=== PATIENT | male | born 1940 | race Caucasian/White ===

== ENCOUNTER 2020-12-27 11:14 | Day surgery (SDC) | payer OTHER, SELFPAY ==
[~2020-12-27] VITALS: Ht 175.3 cm; Wt 69.4 kg
[~2020-12-27 11:14] MED LIST: CEFAZOLIN 2 GM IVPB PREMIX 50 ML IV ONE
[2020-12-27] MEDS ORDERED: SIMV20TA2 PO (12:22)
[2020-12-27] MEDS ORDERED: METO25TA3 PO (12:22)
[2020-12-27] MEDS ORDERED: CALC-823 PO (12:22)
[2020-12-27] MEDS ORDERED: PRAS10TA6 PO (12:22)
[2020-12-27] MEDS ORDERED: LISI-209 PO (12:22)
[2020-12-27] MEDS ORDERED: MULT-1089 PO (12:22)
[2020-12-27] MEDS ORDERED: ASPI-1393 PO (12:22)
[2020-12-27] MEDS ORDERED: KETOROLAC TROMETHAMINE 30 MG VIAL IVP ONE (12:43)
[2020-12-27] MEDS ORDERED: BUPIVACAINE /EPINEPHRINE/PF 0.5% 30 ML VIAL INJ ONE (12:43)
[2020-12-27] MEDS ORDERED: fentaNYL CITRATE/PF 100 MCG/2 ML AMP IVP ONE (12:43)
[2020-12-27] MEDS ORDERED: DEXAMETHASONE SOD PHOSPHATE 4 MG/ML VIAL IVP ONE (12:43)
[2020-12-27] MEDS ORDERED: SEVOFLURANE 15 MIN GAS INH ONE (12:43)
[2020-12-27] MEDS ORDERED: ONDANSETRON HCL 4 MG/2 ML VIAL IVP ONE (12:43)
[2020-12-27] MEDS ORDERED: PROPOFOL 200MG/ 20ML VIAL (DIPRIVAN) IV ONE (12:43)
[2020-12-27] MEDS ORDERED: NS IRRIG SOLN 1000 ML IR ONE (12:43)
[2020-12-27] MEDS ORDERED: METOCLOPRAMIDE HCL 10 MG/2 ML VIAL IVP ONE (12:43)
[2020-12-27] MEDS ORDERED: WATER FOR IRRIGATION,STERILE 1,000 ML IRRIG.SOLN IR ONE (12:43)
[2020-12-27] MEDS ORDERED: LIDOCAINE 1% 10 MG/ML, 20 ML MDV INJ ONE (12:43)
[2020-12-27] MEDS ORDERED: MIDAZOLAM HCL 5 MG/5 ML VIAL IVP ONE (12:43)
[2020-12-27] MEDS ORDERED: LR 1,000 ML IV.SOLN IV ONE (12:43)
[2020-12-27] MEDS ORDERED: HYDROmorphone 1 MG/ML INJ. CARTRIDGE IVP PRN ×2 (13:45)
[2020-12-27] MEDS ORDERED: hydrALAZINE HCL 20 MG/ML VIAL IVP PRN (13:45)
[2020-12-27] MEDS ORDERED: METOCLOPRAMIDE HCL 10 MG/2 ML VIAL IVP PRN (13:45)
[2020-12-27] MEDS ORDERED: LR 1,000 ML IV SCH (13:45)
[2020-12-27] MEDS ORDERED: MEPERIDINE HCL/PF 25 MG/ML DISP.SYRIN IVP PRN (13:45)
[2020-12-27] MEDS ORDERED: BUPIVACAINE LIPOSOME/PF 266 MG/20 ML VIAL INFIL ONE (13:46)
[2020-12-27 16:03] VITALS: BP_SYST 123
== END 2020-12-27 17:20 | disposition home or self-care (01) ==
LOC: SDS 11:14 → SMU 11:15 → SDS 17:20
PROVIDERS: ATTEND Surgery
DX: K40.90 Unilateral inguinal hernia, without obstruction or gangrene, not specified as recurrent (principal); I10 Essential (primary) hypertension; I25.10 Atherosclerotic heart disease of native coronary artery without angina pectoris; E78.2 Mixed hyperlipidemia; Z20.822 Contact with and (suspected) exposure to COVID-19; Z98.61 Coronary angioplasty status; Z79.899 Other long term (current) drug therapy
CPT/HCPCS: 49505; 88302; C1781; C9290; J0690; U0003; J1100; J1885; J2001; J2250; J2405; J2704; J2765; J3010; J3490; J7120

== ENCOUNTER 2020-12-31 10:08 | Observation (INO) | payer OTHER, SELFPAY ==
[~2020-12-31] VITALS: Ht 175.3 cm; Wt 69.4 kg
[~2020-12-31 10:08] MED LIST changes: +ASPI-1393 PO; +CALC-823 PO; -CEFAZOLIN 2 GM IVPB PREMIX 50 ML IV ONE; +LISI-209 PO; +METO25TA3 PO; +MULT-1089 PO; +PRAS10TA6 PO; +SIMV20TA2 PO
[2020-12-31 10:10] VITALS: BP_SYST 120
[2020-12-31] MEDS ORDERED: MORPHINE 2 MG/ML INJ. SYRINGE IVP ONE (10:30)
[2020-12-31] MEDS ORDERED: ASPIRIN 325 MG TABLET PO ONE (10:30)
[2020-12-31 10:59] LABS: ANION GAP 12 (5-15); CALCIUM 8.7 mg/dL (8.4-11.0); CHLORIDE 105 mmol/L (98-107); CREATININE 1.07 mg/dL (0.55-1.30); GLUCOSE 98 mg/dL (70-99); POTASSIUM 3.9 mmol/L (3.5-5.1); SODIUM SERUM 139 mmol/L (136-145); UREA NITROGEN, BLOOD 28 mg/dL (8-21)
[2020-12-31 11:01] LABS: BASOPHILS % (AUTO) 0.1 % (0.0-2.0); EOSINOPHILS % (AUTO) 0.3 % (0.0-4.0); HEMATOCRIT 37.9 % (36-54); HEMOGLOBIN 12.8 g/dL (14.0-18.0); LYMPHOCYTES # (AUTO) 1.2 K/uL (1.0-5.5); LYMPHOCYTES % (AUTO) 10.9 % (20.5-51.5); MEAN CORPUSCULAR HEMOGLOBIN 30 pg (27-31); MEAN CORPUSCULAR HGB CONC 34 % (32-36); MEAN CORPUSCULAR VOLUME 88 fL (79.0-98.0); MONOCYTES # (AUTO) 0.9 K/uL (0.0-1.0); NEUTROPHILS # (AUTO) 8.8 K/uL (1.8-7.7); NEUTROPHILS % (AUTO) 80.7 % (40.0-70.0); PLATELET COUNT (AUTO) 159 K/uL (130-430); RED BLOOD CELL COUNT(AUTO) 4.32 MIL/uL (4.2-6.2); RED CELL DISTRIBUTION WIDTH 13.4 % (9.0-15.0); WHITE BLOOD COUNT (AUTO) 10.9 K/uL (4.8-10.8)
[2020-12-31 11:09] LABS: ALANINE AMINOTRANSFERASE 19 U/L (12-78); ALBUMIN 3.1 g/dL (3.4-4.8); ASPARTATE AMINOTRANSFERASE 32 U/L (10-37); TOTAL BILIRUBIN 1.1 mg/dL (0.0-1.0)
[2020-12-31 14:26] VITALS: BP_SYST 108
[2020-12-31] MEDS ORDERED: NITROGLYCERIN 0.4 MG TAB.SUBL SL PRN (15:30)
[2020-12-31] MEDS ORDERED: NON-FORMULARY MEDICATION (Prasugrel Hydrochloride (Effient) 10 MG) PO SCH (15:45)
[2020-12-31 16:00] VITALS: BP_SYST 105
[2020-12-31 16:10] VITALS: BP_SYST 106
[2020-12-31 16:15] VITALS: BP_SYST 102
[2020-12-31] MEDS ORDERED: *LOVENOX 1MG/KG Q12H/PHARMACY XX ONE (18:15)
[2020-12-31] MEDS ORDERED: ENOXAPARIN SODIUM 80 MG/0.8 ML SYRINGE SUBCUT ONE (18:45)
[2020-12-31 20:00] VITALS: BP_SYST 97
[2021-01-01] VITALS: BP_SYST 105
[2021-01-01 04:04] LABS: ALANINE AMINOTRANSFERASE 19 U/L (12-78); ALBUMIN 2.6 g/dL (3.4-4.8); ANION GAP 10 (5-15); ASPARTATE AMINOTRANSFERASE 23 U/L (10-37); CALCIUM 7.6 mg/dL (8.4-11.0); CHLORIDE 103 mmol/L (98-107); CHOLESTEROL 130 mg/dL (<200); CREATININE 1.17 mg/dL (0.55-1.30); GLUCOSE 106 mg/dL (70-99); HDL CHOLESTEROL 46 mg/dL (>45); LDL CHOLESTEROL 73 mg/dL (<100); POTASSIUM 3.7 mmol/L (3.5-5.1); SODIUM SERUM 136 mmol/L (136-145); TRIGLYCERIDES 79 mg/dL (30-150); UREA NITROGEN, BLOOD 26 mg/dL (8-21)
[2021-01-01] MEDS ORDERED: IOHEXOL 350 mgI/mL, 150 ML INFUS..BTL IV ONE (07:52)
[2021-01-01 08:00] VITALS: BP_SYST 136
[2021-01-01] MEDS ORDERED: SIMVASTATIN 20 MG TABLET PO SCH (09:00)
[2021-01-01] MEDS ORDERED: METOPROLOL SUCCINATE 25 MG TAB.SR.24H (TOPROL XL) PO SCH (09:00)
[2021-01-01] MEDS ORDERED: lisinopriL 5 MG TABLET PO SCH (09:00)
[2021-01-01] MEDS ORDERED: NON-FORMULARY MEDICATION (Prasugrel Hydrochloride (Effient) 10 MG) PO SCH (09:00)
[2021-01-01] MEDS ORDERED: ASPIRIN 81 MG TABLET(ECOTRIN) PO SCH (09:00)
[2021-01-01] MEDS ORDERED: ENOXAPARIN SODIUM 80 MG/0.8 ML SYRINGE SUBCUT SCH (09:00)
== END 2021-01-01 14:30 | disposition home or self-care (01) ==
LOC: SED 10:08 → STU 12:35
PROVIDERS: ADMIT Internal Medicine Hospice and Palliative Medicine; ATTEND Internal Medicine Hospice and Palliative Medicine
DX: R07.89 Other chest pain (principal); Z20.822 Contact with and (suspected) exposure to COVID-19; I25.10 Atherosclerotic heart disease of native coronary artery without angina pectoris; I10 Essential (primary) hypertension; E78.5 Hyperlipidemia, unspecified; G89.29 Other chronic pain; M54.9 Dorsalgia, unspecified; Z85.46 Personal history of malignant neoplasm of prostate; Z95.5 Presence of coronary angioplasty implant and graft; Z79.899 Other long term (current) drug therapy; Z79.82 Long term (current) use of aspirin; Z79.02 Long term (current) use of antithrombotics/antiplatelets; Z98.890 Other specified postprocedural states
CPT/HCPCS: 36415 ×2; 71045; 71275; 80053 ×2; 80061; 84484 ×2; 85025; 85379; 87426; 93005 ×2; 93306; 93970; 96372 ×2; 96374; 99285; G0378 ×2; J1650 ×2; J2270; Q9967; 76376

== ENCOUNTER 2021-12-22 06:25 | Day surgery (SDC) | payer OTHER ==
[~2021-12-22] VITALS: Ht 175.3 cm; Wt 67.1 kg
[~2021-12-22 06:25] MED LIST changes: +SIMV-343 PO; -SIMV20TA2 PO
[2021-12-22] MEDS ORDERED: CEFAZOLIN SOD 1 GM in D5W 50 ML IV ONE (06:45)
[2021-12-22] MEDS ORDERED: PROPOFOL 200MG/ 20ML VIAL (DIPRIVAN) IV ONE (07:41)
[2021-12-22] MEDS ORDERED: BUPIVACAINE /PF 0.25% 30 ML VIAL INJ ONE (07:41)
[2021-12-22] MEDS ORDERED: GLYCOPYRROLATE 0.2 MG/ML VIAL IJ ONE (07:41)
[2021-12-22] MEDS ORDERED: ONDANSETRON HCL 4 MG/2 ML VIAL IVP ONE (07:41)
[2021-12-22] MEDS ORDERED: SEVOFLURANE 15 MIN GAS INH ONE (07:41)
[2021-12-22] MEDS ORDERED: LR 1,000 ML IV.SOLN IV ONE (07:41)
[2021-12-22] MEDS ORDERED: EPINEPHrine JECT 0.1 MG/ML SYR IVP ONE (07:41)
[2021-12-22] MEDS ORDERED: DEXAMETHASONE SOD PHOSPHATE 4 MG/ML VIAL IVP ONE (07:41)
[2021-12-22] MEDS ORDERED: NS IRRIG SOLN 1000 ML IR ONE (07:41)
[2021-12-22] MEDS ORDERED: fentaNYL CITRATE/PF 100 MCG/2 ML AMP IVP ONE (07:41)
[2021-12-22] MEDS ORDERED: LIDOCAINE 1% 10 MG/ML, 20 ML MDV INJ ONE (07:41)
[2021-12-22] MEDS ORDERED: MIDAZOLAM HCL 5 MG/5 ML VIAL ONE (07:41)
[2021-12-22] MEDS ORDERED: MEPERIDINE HCL/PF 25 MG/ML DISP.SYRIN IVP PRN (08:45)
[2021-12-22] MEDS ORDERED: METOCLOPRAMIDE HCL 10 MG/2 ML VIAL IVP PRN (08:45)
[2021-12-22] MEDS ORDERED: hydrALAZINE HCL 20 MG/ML VIAL IVP PRN (08:45)
[2021-12-22] MEDS ORDERED: HYDROmorphone 1 MG/ML INJ. CARTRIDGE IVP PRN ×2 (08:45)
[2021-12-22] MEDS ORDERED: MIDAZOLAM HCL 2 MG/2 ML VIAL (VERSED) IVP PRN (08:45)
[2021-12-22] MEDS ORDERED: LR 1,000 ML IV SCH (08:45)
[2021-12-22] MEDS ORDERED: LABETALOL 100 MG/ 20ML VIAL IVP PRN (08:45)
[2021-12-22] MEDS ORDERED: D5/0.45 NS 1,000 ML IV SCH (09:15)
[2021-12-22] MEDS ORDERED: HYDROcodone/ACETAMIN 5-325 MG TAB (NORCO/ VICODIN) PO PRN ×2 (09:15)
[2021-12-22 13:50] VITALS: BP_SYST 157
== END 2021-12-22 07:54 | disposition home or self-care (01) ==
LOC: SDS 06:25 → SMU 06:28 → SDS 07:54
PROVIDERS: ATTEND Colon & Rectal Surgery
DX: K40.31 Unilateral inguinal hernia, with obstruction, without gangrene, recurrent (principal); I10 Essential (primary) hypertension; I25.10 Atherosclerotic heart disease of native coronary artery without angina pectoris; E78.5 Hyperlipidemia, unspecified; Z85.46 Personal history of malignant neoplasm of prostate; Z79.82 Long term (current) use of aspirin; Z79.899 Other long term (current) drug therapy; Z20.822 Contact with and (suspected) exposure to COVID-19
CPT/HCPCS: 36415 ×2; 49521; 87426; U0003; J3490 ×2; J0690; J1100; J0171; J2001; J2250; J2405; J2704; J3010; J7060; J7120; C1781